=== PATIENT | female | born 1995 | race Two or more races ===

== ENCOUNTER 2025-08-19 08:03 | Emergency (ER) | payer MEDICAID, OTHER ==
[~2025-08-19] VITALS: Ht 157.5 cm; Wt 123.3 kg
--- NOTE | 2025-08-19 08:43 | ED.PDOC ---
Musculoskeletal HPI Comments 29 year old female presents to the ED with a chief compliant of RT knee pain onset 3 days. Patient states she began experiencing Rt knee pain 3 days ago, described as a tight sensation. Yesterday, patient states she heard a "pop" from Rt knee, since then noticed pain has worsen, noticed swelling as well. Pain worsens when applying pressure. No other symptoms or modifying factors present at this time. Denies trauma to the knee or recent fall Denies skin color changes around the knee Denies masses around the knee Denies fever chills night sweats nausea vomiting Denies previous surgeries to the knee nor significant injury Chief Complaint: Lower Extremity Time Seen by MD: 08:30 Reviewed Notes: Medications, Allergies Allergies: Coded Allergies: NO KNOWN ALLERGIES (Unverified , 08/19/25) Home Meds Active Scripts Naproxen (Naproxen) 375 Mg Tab, 1 TAB PO BID for 10 Days, #20 TAB 0 Refills Prov:RAMON FITZGERALD LEMUEL 08/19/25 Information Source: Patient Mode of Arrival: Ambulatory Location: Right Extremity Location: Knee Timing: Days Prehospital treatment: None Severity: Moderate Able to Move Extremity: Yes Bear Weight: Limited Pain: Moderate Mechanism: Spontaneous Circumstances: Spontaneous Symptoms: Swelling, Pain DVT Risk Factors: NONE Last Tetanus: UTD Associated signs and symptoms: Knee pain Past Medical History PAST MEDICAL HISTORY: Denies Surgical History: Denies all surgeries STEWARD/STEWARDESS NIGHT History: No Pertinent STEWARD/STEWARDESS NIGHT History Family History Family History: Reviewed,noncontributory to illness, No family hx of Cancer, No family hx of DM, No family hx of Heart jaqui, No family hx of HTN, No family hx ofKidney jaqui, No family hx of Liver jaqui, No family hx of Lung jaqui, No family hx of Stroke Social History Smoker: Non-Smoker Alcohol: Denies ETOH Use Drugs: Denies Drug Use Lives In: Home All Other Systems: Reviewed and Negative (as per HPI) Physical Exam General Appearance: No Apparent Distress, Normal HEENT: Normal ENT Inspection, Pharynx Normal, TMs Normal Neck: Full Range of Motion, Non-Tender, Normal, Normal Inspection Respiratory: Chest Non-Tender, Lungs Clear, No Accessory Muscle Use, No Respiratory Distress, Normal Breath Sounds Cardiovascular: No Edema, No JVD, No Murmur, No Gallop, Normal Peripheral Pulses, Regular Rate/Rhythm Breast Exam: Deferred Gastrointestinal: No Organomegaly, Non Tender, No Pulsatile Mass, Normal Bowel Sounds, Soft Genitalia: Deferred Pelvic: Deferred Rectal: Deferred Extremities: No calf tenderness, Normal capillary refill Musculoskeletal : Location: Right Extremity Location: Knee (no deformity noted, pain with flexion and extention, no crepetous, neurovascular sensation intact) Apperance: Normal Neurologic: Alert, human capital consultant II-XII nml as Tested, No Motor Deficits, Normal Affect, Normal Mood, No Sensory Deficits Cerebellar Function: Normal Reflexes: Normal Skin: Dry, Normal Color, Warm Lymphatic: No Adenopathy Was a procedure done? Was a procedure done?: No Differential Diagnosis EXT Differential Diagnosis: Cellulitis, Deep Vein Thrombosis, Compartment Syndrome, Fracture, Sprain, Arthritis X-Ray, Labs, Meds, VS Vital Signs Date Time Temp Pulse Resp B/P (MAP) Pulse Ox O2 Delivery O2 Flow Rate FiO2 08/19/25 08:49 99.0 86 17 131/68 (89) 98 99.0 08/19/25 08:49 86 17 98 Room Air 08/19/25 08:03 99.2 94 18 119/82 98 99.2 [place] [address] Ph: [phone] DIAGNOSTIC IMAGING Diagnostic Imaging Report : [id number] Signed PATIENT: NEO CORNEJO ACCT: [id number] UNIT: [id number] : 1995 LOC: ER ROOM / BED: / AGE / SEX: 29 / F ADM STATUS: REG ER SERVICE [id number] ORDERING PHYSICIAN: RAMON FITZGERALD NP PROCEDURE(s): RKN3 - R KNEE 3V XRAY REASON: Pain ORDER NUMBER(s): [id number], ACCESSION NUMBER(s): [id number] CLINICAL INDICATION: Pain TECHNIQUE: 3 radiographic views of the right knee were obtained. Comparison: XR FOOT COMP RT on DOS: 03/01/24, XR ANKLE COMP RT on DOS: 03/01/24 FINDINGS/IMPRESSION: There is no evidence of acute fracture or dislocation. The visualized joint space is well maintained. The alignment is anatomical. There is no radiopaque foreign body. ATED BY: NAOMIE TOBAR MD DICTATED DATE/TIME: 08/19/25923 SIGNED BY: NAOMIE TOBAR MD SIGNED DATE/TIME: 08/19/25923 CC: X-Ray, Labs, Meds, VS Comment 29 year old female presents to the ED with a chief compliant of RT knee pain onset 3 days. Patient arrives alert and oriented, ABC's intact, afebrile, vital signs stable, saturating well in room air Diagnostic imaging ordered by me and results interpreted by radiology : XY R Knee 3V: IMPRESSION: There is no evidence of acute fracture or dislocation. The visualized joint space is well maintained. The alignment is anatomical. There is no radiopaque foreign body. Additional MDM Review of External, Non-ED records: External records reviewed. Discussion with independent historian (EMS, family) history obtained from the patient/parents (if applicable) at bedside Chronic conditions affecting care: None Social determinants of health affecting care: None Consideration of admission (observation or admission): I considered escalation of care to admission for this patient, however given the reassuring workup, the patient is safe for outpatient management. On reevaluation, patient had symptomatic improvement. Patient is stable for discharge at this time. External notes reviewed. Test results and diagnostic imaging interpreted. All diagnostic findings, discharge care, education and instructions provided Follow-up with PCP in 2 to 3 days Patient verbalized understanding and agreed to treatment plan Vital signs stable, afebrile, no acute distress noted Patient ambulatory with strong steady gait Advised to return precautions for any new or worsening symptoms, return to ER immediately for re-evaluation Patient is aware that the purpose of this visit was for an acute medical emergency requiring emergent stabilization. Chronic conditions, including malignancies have not been ruled out. Patient is instructed to follow up with PCP as directed and discharge instructions for continued care and workup. If unable to arrange follow-up, patient is to return to the emergency department for reassessment. Patient (parent or legal guardian if applicable) was given verbal and written discharge instructions and acknowledges understanding. Time of 1ST Reevaluation: 09:00 Reevaluation 1ST: Improved Patient Education/Counseling: Diagnosis, Treatment, Prognosis Family Education/Counseling: No Family Present Departure 1 Departure Time of Disposition: 09:48 Impression: Primary Impression: Right knee pain Qualified Codes: M25.561 - Pain in right knee Disposition: HOME / SELF CARE / HOMELESS Condition: Fair e-Prescriptions Naproxen (Naproxen) 375 Mg Tab 1 TAB PO BID for 10 Days, #20 TAB 0 Refills Prov: RAMON FITZGERALD NP 08/19/25 Critical Care Note Critical Care Time?: No Stability Stability form required: No Heart Score Heart Score: Heart Score Response (Comments) Value History N/A 0 EKG N/A 0 Age N/A 0 Risk Factors N/A 0 Troponin N/A 0 Total 0 I personally scribed for RAMON FITZGERALD NP ([email or web address]) on 08/19/25 at 08:43. Electronically submitted by Marie Jaquez ([email or web address]). I personally scribed for RAMON FITZGERALD NP ([email or web address]) on 08/19/25 at 09:31. Electronically submitted by Marie Jaquez ([email or web address]). RAMON FITZGERALD NP Aug 19, 2025 08:43
[2025-08-19 08:49] VITALS: BP 131/68; PULSE 86; RESP 17; TEMP 99; O2SAT 98
--- NOTE | 2025-08-19 09:27 | DVH ---
CLINICAL INDICATION: Pain TECHNIQUE: 3 radiographic views of the right knee were obtained. Comparison: XR FOOT COMP RT on DOS: 03/01/24, XR ANKLE COMP RT on DOS: 03/01/24 FINDINGS/IMPRESSION: There is no evidence of acute fracture or dislocation. The visualized joint space is well maintained. The alignment is anatomical. There is no radiopaque foreign body.
[2025-08-19] MEDS ORDERED: NAPR-957 PO (09:49)
== END 2025-08-19 10:00 | disposition home or self-care (01) ==
LOC: ER 08:03
DX: M25.561 Pain in right knee (principal); M79.89 Other specified soft tissue disorders
CPT/HCPCS: 73562